=== PATIENT | male | born 1965 | race Caucasian/White ===

== ENCOUNTER 2020-09-25 10:35 | Emergency (ER) | payer OTHER ==
[2020-09-25 11:02] VITALS: BP 151/87; PULSE 82; TEMP 98; BMI 34.9
[2020-09-25 11:37] LABS: BASO % 0.4 % (0-2.0); EOS % 5.7 % (0-4.5); HEMATOCRIT 41.2 % (35.4-49); LYMPH % 35.8 % (8-40); MCH 31.2 pg (25.7-33.7); MCHC 34.1 g/dl (32.0-35.9); MEAN CELL VOLUME 91.6 fl (80-96); MEAN PLT VOLUME 6.8 fl (7.5-11.1); MONO % 13.3 % (3.8-10.2); NEUT % 44.8 % (42.8-82.8); PLATELET COUNT 227 10^3/uL (134-434); RDW 12.9 % (11.9-15.9); WHITE BLOOD COUNT 6.9 K/mm3 (4.0-10.0)
[2020-09-25 11:47] LABS: CALCIUM 8.7 mg/dL (8.5-10.1)
[2020-09-25 11:48] LABS: ALBUMIN 3.7 g/dl (3.4-5.0)
[2020-09-25 11:51] LABS: CREATININE 1.3 mg/dL (0.55-1.3)
[2020-09-25 11:53] LABS: BILIRUBIN,TOTAL 0.9 mg/dL (0.2-1); TOT PROT 7.1 g/dl (6.4-8.2)
[2020-09-25] MEDS ORDERED: DEXAMETHASONE LIQUID 0.5 MG/5 ML PO ONE (12:06)
[2020-09-25] MEDS ORDERED: DEXAMETHASONE SOD PHOSPHATE 10 MG/1 ML VIAL ONE (12:27)
== END 2020-09-25 12:52 | disposition home or self-care (01) ==
LOC: JER 10:35 → JERFT 10:35
DX: T50.905A Adverse effect of unspecified drugs, medicaments and biological substances, initial encounter (principal)
CPT/HCPCS: 36415; 80053; 85025; 99283-25